=== PATIENT | female | born 1960 | race American Indian/Alaskan Native ===

== ENCOUNTER 2020-09-08 13:49 | Outpatient (CLI) | payer OTHER ==
--- NOTE | 2020-09-08 14:41 | XRay Report ---
BILATERAL KNEES 6 VIEWS INDICATION / CLINICAL INFORMATION: BILATERAL KNEE PAIN. COMPARISON: None available. FINDINGS: Advanced tricompartmental degenerative change in both knees. No other significant skeletal abnormalit y Signer Name: Geovanny Dey MD FACR Signed: 09/08/2020 2:37 PM Workstation Name: [id number]
--- NOTE | 2020-09-08 14:41 | XRay Report ---
LUMBAR SPINE 3 VIEWS INDICATION / CLINICAL INFORMATION: BACK PAIN. COMPARISON: None available. FINDINGS: Moderate narrowing of the L2-3 and L3-4 disc space. There is mild anterolisthesis of L4 on L5. Signer Name: Geovanny Dey MD FACR Signed: 09/08/2020 2:36 PM Workstation Name: [id number]
--- NOTE | 2020-09-08 14:41 | XRay Report ---
BILATERAL SHOULDERS 6 VIEWS INDICATION / CLINICAL INFORMATION: BILATER SHOULDER PAIN. COMPARISON: None available. FINDINGS: No significant skeletal abnormality Signer Name: Geovanny Dey MD FACR Signed: 09/08/2020 2:37 PM Workstation Name: [facility]
== END 2020-09-08 13:50 | disposition home or self-care (01) ==
LOC: XRAY 13:49
PROVIDERS: ATTEND Internal Medicine
DX: M17.0 Bilateral primary osteoarthritis of knee (principal); M43.16 Spondylolisthesis, lumbar region; M48.061 Spinal stenosis, lumbar region without neurogenic claudication; M25.512 Pain in left shoulder; M25.511 Pain in right shoulder
CPT/HCPCS: 72100